=== PATIENT | female | born 1985 | race African-American/Black ===

== ENCOUNTER 2018-04-26 23:28 | Emergency (ER) | payer SELFPAY ==
[2018-04-26] MEDS ORDERED: NS 0.9% 1000 ML** 1,000 ML IV ONE (23:48)
--- NOTE | 2018-04-26 23:58 | ED ---
Dizziness - HPI Summary HPI Summary: Pt is a 32 y/o female who presents to the ED c/o dizziness. For the past week shes had intermittent dizziness, described as lightheadedness and near- syncope. Pt states the dizziness normally happens in the morning but today it happened at night for the first time. She also c/o intermittent blurred vision and BUE weakness. Pt denies any STAPLETON, numbness, or dysuria. PMHx HTN and anemia. LNMP 04/17/18. Pt denies any smoking, alcohol, or drug use. - History Of Current Complaint Chief Complaint: EDDizziness Stated Complaint: "VERY LIGHTHEADED, DIZZY, POSS SYNCOPE" PER PT Time Seen by Provider: 04/26/18 23:47 Hx Obtained From: Patient Onset/Duration: Still Present Timing: Weeks - 1 Character: Lightheaded, Dizzy Aggravating Factor(s): Nothing Alleviating Factor(s): Nothing Associated Signs And Symptoms: Positive: Other: - blurred vision, weakness - Allergies/Home Medications Allergies/Adverse Reactions: Allergies Allergy/AdvReac Type Severity Reaction Status Date / Time pineapple Allergy Hives Verified 04/26/18 23:32 PMH/Surg Hx/FS Hx/Imm Hx Endocrine/Hematology History: Reports: Hx Anemia Denies: Hx Blood Disorders - sickle cell Cardiovascular History: Reports: Hx Hypertension Infectious Disease History: No Infectious Disease History: Denies: Traveled Outside the [place] in Last 30 Days - Family History Known Family History: Positive: Cardiac Disease, Hypertension, Other - CA, stroke - Social History Alcohol Use: None Hx Substance Use: No Substance Use Type: Reports: None Hx Tobacco Use: No Smoking Status (MU): Never Smoked Tobacco Review of Systems Positive: Blurred Vision Negative: dysuria Neurological: Other - Dizziness, lightheadedness Positive: Weakness - BUE, Syncope - near. Negative: Headache, Numbness All Other Systems Reviewed And Are Negative: Yes Physical Exam - Summary Physical Exam Summary: Appearance: well appearing, no pain distress Skin: warm, dry, reflects adequate perfusion Head/face: normal Eyes: EOMI, NICOLASA ENT: mucous membranes moist Neck: supple, non-tender Respiratory: CTA, breath sounds present Cardiovascular: RRR, pulses symmetrical Abdomen: non-tender, soft Bowel Sounds: present Musculoskeletal: normal, strength/ROM intact Neuro: normal, sensory motor intact, A&Ox3 Triage Information Reviewed: Yes Vital Signs On Initial Exam: Initial Vitals Temp Pulse Resp BP Pulse Ox 97.5 F 75 16 153/99 100 04/26/18 23:29 04/26/18 23:29 04/26/18 23:29 04/26/18 23:29 04/26/18 23:29 Vital Signs Reviewed: Yes Diagnostics - Vital Signs Vital Signs Temp Pulse Resp BP Pulse Ox 04/26/18 23:29 97.5 F 75 16 153/99 100 - Laboratory Result Diagrams: 04/27/18 00:18 04/27/18 00:18 Lab Statement: Any lab studies that have been ordered have been reviewed, and results considered in the medical decision making process. - EKG 23:57 Cardiac Rate: NL - 73 bpm EKG Rhythm: Sinus Rhythm - sinus arhythmia ST Segment: Normal Summary of EKG Findings: Nl axis, nl intervals Dizzy Course/Dx - Course Course Of Treatment: Nurse's notes reviewed. Patient with complaint of lightheadedness and elevated blood pressure that began today. She has history of similar symptoms. She was found to have urinary tract infection which was treated with IV fluids and IV Rocephin. She is feeling well at time of discharge and will continue on Macrobid outpatient. She will follow-up with her hypertension with her primary care physician on return home. - Diagnoses Differential Diagnosis/HQI/PQRI: Hyperventilation, Hypovolemia, Labyrinthitis, Medication Reaction, Metabolic Abnormality, Vasovagal Reaction, Other - UTI Provider Diagnoses: UTI (urinary tract infection), Near syncope Discharge - Sign-Out/Discharge Documenting (check all that apply): Patient Departure - Discharge Patient Received Moderate/Deep Sedation with Procedure: No - Discharge Plan Condition: Improved Disposition: HOME Prescriptions: Nitrofurantoin Monohyd/M-Cryst [Macrobid 100 mg Capsule] 100 mg PO BID #10 cap Patient Education Materials: Urinary Tract Infection in Women (ED), Near Syncope (ED) Referrals: [facility] [Outside] Additional Instructions: Upon return home have your blood pressure recheck by your doctor. Drink plenty of fluids, cranberry juice may help. Return with fever, persistent lightheadedness, worse, new symptoms or other concerns. Also return with blood pressures over 200 associated with symptoms. - Billing Disposition and Condition Condition: IMPROVED Disposition: Home - Attestation Statements Document Initiated by Scribe: Yes Documenting Scribe: Sahara Rousseau Provider For Whom Scribe is Documenting (Include Credential): Pavan Reyes MD Scribe Attestation: Sahara Pruett, scribed for Pavan Reyes MD on 04/27/18 at 0145. Scribe Documentation Reviewed: Yes Provider Attestation: The documentation as recorded by the Sahara medina accurately reflects the service I personally performed and the decisions made by Pavan andrew MD Status of Scribe Document: Viewed
[2018-04-27 00:26] LABS: ABS Basophils 0.1 10^3/ul (0-0.2); ABS Eosinophils 0.2 10^3/ul (0-0.6); ABS Lymphocytes 4.1 10^3/ul (1.0-4.8); ABS Monocytes 0.6 10^3/ul (0-0.8); ABS Neutrophils 3.7 10^3/ul (1.5-7.7); ABS Nucleated RBC 0 10^3/ul; Eosinophil % 2.2 %; Hematocrit 36 % (33-41); Hemoglobin 11.9 g/dL (12.0-16.0); Lymphocyte % 47.2 %; Mean Corpuscular HGB Conc 33 g/dL (31-36); Mean Corpuscular Hemoglobin 31 pg (27-31); Mean Corpuscular Volume 94 fL (80-97); Mean Platelet Volume 6.8 fL (7.4-10.4); Nucleated Red Blood Cells % 0.2; Platelet Count 483 10^3/uL (150-450); Red Cell Distribution Width 14 % (10.5-15); White Blood Count 8.8 10^3/uL (3.5-10.8)
[2018-04-27 00:29] LABS: Urine Appearance Cloudy; Urine Bacteria 3+ (Absent); Urine Bilirubin Negative (Negative); Urine Blood 1+ (Negative); Urine Color Yellow; Urine Glucose Negative (Negative); Urine Ketones Negative (Negative); Urine Nitrite Negative (Negative); Urine Protein Negative (Negative); Urine Red Blood Cell 1+(3-5/hpf) (Absent); Urine Specific Gravity 1.014 (1.010-1.030); Urine Squamous Epithelial Cell Present (Absent); Urine Urobilinogen Negative (Negative); Urine White Blood Cell 2+(11-20/hpf) (Absent)
[2018-04-27] MEDS ORDERED: cefTRIAXone(*) 1 GM in NS 0.9% 50 ML* 50 ML IVPB ONE (00:37)
[2018-04-27 00:44] LABS: Albumin 4.6 g/dL (3.2-5.2); Albumin/Globulin Ratio 1.4 (1-3); BUN/Creatinine Ratio 14.4 (8-20); Calcium 9.4 mg/dL (8.6-10.3); EGFR African American 87.3 (>60); EGFR Non-African American 72.1 (>60); Globulin 3.3 g/dL (2-4); Potassium 3.8 mmol/L (3.5-5.0); Total Bilirubin 0.5 mg/dL (0.2-1.0); Total Protein 7.9 g/dL (6.4-8.9)
[2018-04-27 01:20] LABS: TSH (Thyroid Stimulating Horm) 3.91 mcIU/mL (0.34-5.60)
[2018-04-27 02:08] VITALS: BP 138/96
== END 2018-04-27 01:50 | disposition home or self-care (01) ==
LOC: ED 23:28
DX: N39.0 Urinary tract infection, site not specified (principal); R55 Syncope and collapse; R53.1 Weakness; H53.8 Other visual disturbances; R42 Dizziness and giddiness
CPT/HCPCS: 36415; 80053; 81003; 81015; 84443; 84484; 85025; 87086; 93005; 96365; 99283; J0696